=== PATIENT | female | born 1990 | race Caucasian/White ===

== ENCOUNTER 2018-12-01 14:10 | Emergency (ER) | payer OTHER ==
[2018-12-01 15:14] LABS: ALT (SGPT) Less than 7 U/L (8-55); AST (SGOT) 14 U/L (5-34); Albumin 4.3 g/dL (3.5-5.0); Alkaline Phosphatase 80 U/L (40-150); Anion Gap 12 mmol/L (10-20); BUN (Urea Nitrogen) 8 mg/dL (7.0-18.7); Bilirubin, Total 0.3 mg/dL (0.2-1.2); CK (CPK) 87 U/L (29-168); Calc. Creatinine Clearance 0 mL/min (70-130); Calcium 9.2 mg/dL (7.8-10.44); Carbon Dioxide 24 mmol/L (22-29); Chloride 108 mmol/L (98-107); Estimated GFR-MDRD 82; Globulin 2.2 g/dL (2.4-3.5); Glucose 105 mg/dL (70-105); Potassium 3.5 mmol/L (3.5-5.1); Protein, Total 6.5 g/dL (6.0-8.3); Sodium 140 mmol/L (136-145)
== END 2018-12-01 15:55 | disposition home or self-care (01) ==
LOC: BURERS 14:10
DX: R00.2 Palpitations (principal)
CPT/HCPCS: 80053; 82550; 84443; 84484; 93005

== ENCOUNTER 2022-01-24 20:32 | Emergency (ER) | payer BC | END 2022-01-24 21:08 | disposition left against medical advice (07) | LOC: BURERS 20:32 | DX: Z53.21 Procedure and treatment not carried out due to patient leaving prior to being seen by health care provider (principal) ==

== ENCOUNTER 2023-12-26 21:33 | Emergency (ER) | payer BC, OTHER ==
[2023-12-26] MEDS ORDERED: HYDROcodone/Acetaminophen 5/325 mg Tablet ONE (21:56)
== END 2023-12-26 22:30 | disposition home or self-care (01) ==
LOC: BURERS 21:33
DX: S93.422A Sprain of deltoid ligament of left ankle, initial encounter (principal); W21.07XA Struck by softball, initial encounter; Y93.64 Activity, baseball
CPT/HCPCS: 99283

== ENCOUNTER 2024-01-13 15:13 | Emergency (ER) | payer OTHER ==
[2024-01-13] MEDS ORDERED: Ondansetron PF 4 MG/2 ML Vial ONE (15:41)
[2024-01-13] MEDS ORDERED: Ketorolac Tromethamine 30 MG (1 mL) VIAL ONE (15:41)
[2024-01-13 15:55] LABS: Bilirubin Negative (Negative); Blood, Urine Moderate (Negative); Clarity Clear (Clear); Glucose, Urine (Dipstick) Negative (Negative); Ketone, Urine Negative (Negative); Leukocyte Negative (Negative); Nitrite Negative (Negative); Protein, Urine (Dipstick) Negative (Neg-Trace); Specific Gravity, Urine 1.015 (1.005-1.030); Urobilinogen 0.2 mg/dL (Less than 2)
[2024-01-13 16:07] LABS: Bacteria/HPF Rare-Few HPF (None Seen); CAUTI Indications for Culture Pelvic or flank pain; RBC/HPF 21-50 HPF (0-3); Squamous Epithelial 0-3 HPF (0-3); WBC/HPF 0-3 HPF (0-3)
[2024-01-13 16:08] LABS: Urine Culture Reflex No No
[2024-01-13 16:10] LABS: #Basophils 0.1 thou/uL (0.0-0.2); #Eosinophils 0.1 thou/uL (0.0-0.7); #Lymphocytes 2.2 thou/uL (1.20-3.40); #Monocytes 0.6 thou/uL (0.11-0.59); #Neutrophils 6.1 thou/uL (1.40-6.50); %Basophils 0.9 % (0.0-1.0); %Eosinophils 0.7 % (0.0-10.0); %Lymphocytes 23.8 % (21.0-51.0); %Monocytes 6.7 % (0.0-10.0); %Neutrophils 67.9 % (42.0-75.0); ALT (SGPT) 21 U/L (8-55); AST (SGOT) 19 U/L (5-34); Albumin 4.4 g/dL (3.5-5.0); Alkaline Phosphatase 69 U/L (40-110); Anion Gap 13 mmol/L (10-20); BUN (Urea Nitrogen) 11 mg/dL (7.0-18.7); Bilirubin, Total 0.6 mg/dL (0.2-1.2); Calc. Creatinine Clearance 0 mL/min (70-130); Calcium 10.3 mg/dL (7.8-10.44); Carbon Dioxide 26 mmol/L (22-29); Chloride 105 mmol/L (98-107); Estimated GFR 87; Globulin 2.7 g/dL (2.4-3.5); Glucose 105 mg/dL (70-105); Hemoglobin 14.1 g/dL (12.0-16.0); Mean Corpuscular HGB CONC 32.9 g/dL (32.0-36.0); Mean Corpuscular Hemoglobin 29.8 pg (27.0-31.0); Mean Corpuscular Volume 90.7 fl (78.0-98.0); Mean Platelet Volume 7.3 fL (7.4-10.4); Platelet Count 212 10x3/uL (130-400); Potassium 3.7 mmol/L (3.5-5.1); Protein, Total 7.1 g/dL (6.0-8.3); RBC Distribution Width 10.8 % (11.5-14.5); Red Blood Cell (RBC) Count 4.73 mill/uL (4.20-5.40); Sodium 140 mmol/L (136-145); White Blood Cell (WBC) Count 9.1 10x3/uL (4.8-10.8)
== END 2024-01-13 16:50 | disposition home or self-care (01) ==
LOC: BURERS 15:13
DX: N13.2 Hydronephrosis with renal and ureteral calculous obstruction (principal); Z90.710 Acquired absence of both cervix and uterus
CPT/HCPCS: 74176; 80053; 81001; 85025; 96361; 96374; 96375; J1885; J2405